=== PATIENT | female | born 1960 | race Caucasian/White ===

== ENCOUNTER 2021-06-19 19:08 | Emergency (ER) | payer SELFPAY ==
--- NOTE | ~2021-06-19 | XR_ITS ---
EXAMINATION: XR toe 1st LT min 2V DATE: 06/19/2021 19:58 INDICATION: Deep laceration to the left great toe TECHNIQUE: Dorsal plantar, lateral and oblique views of the left first were obtained. COMPARISON: None FINDINGS: Nondisplaced slightly obliqued transverse fracture across the proximal metaphysis of the left first d istal phalanx. Alignment remains near-anatomic. No other fractures identified. Joint spaces are ailyn l. Bandaging material about the great toe. IMPRESSION: Nondisplaced extra-articular fracture across the base of the left first proximal phalanx. Reviewed, dictated and finalized at location A. IMPRESSION: Nondisplaced extra-articular fracture across the base of the left first proxima l phalanx.
[2021-06-19 19:14] VITALS: BP 173/94; PULSE 86; RESP 20; TEMP 36.6; O2SAT 100
--- NOTE | 2021-06-19 19:32 | ED.WOUNDLAC ---
HPI - Wound/Laceration General Chief Complaint: Wound/Laceration Stated Complaint: Laceration to Left Toe Time Seen by Provider: 06/19/21 19:33 Source: patient Mode of arrival: ambulatory Limitations: no limitations History of Present Illness HPI narrative: Female presents to urgent care with her with complaint of pain and laceration to left great toe. Patient had just sat down her backpack type purse on the ground took a step forward and tripped over it. This caused her toenail to bend backwards. Range of motion is decreased due to pain. Distal neurovascular intact. All systems reviewed and negative except as noted above. Related Data Allergies Allergy/AdvReac Type Severity Reaction Status Date / Time Sulfa (Sulfonamide Allergy Severe CHILLS Verified 06/19/21 19:15 Antibiotics) amlodipine Allergy Mild Face Verified 06/19/21 19:15 swelling diltiazem Allergy Mild Unknown Verified 06/19/21 19:15 glipizide Allergy Mild Unknown Verified 06/19/21 19:15 Review of Systems Review of Systems: CONSTITUTIONAL: Denies fever, chills, or sweats. EYES: Denies visual changes, redness, or discharge. ENT: Denies rhinorrhea, congestion, sore throat, or otalgia. CARDIOVASCULAR: Denies chest pain, palpitations, or edema. RESPIRATORY: Denies cough or dyspnea. GASTROINTESTINAL: Denies abdominal pain, nausea, vomiting, or diarrhea. GENITOURINARY: Denies dysuria or hematuria. SKIN: Denies rash or itching. Bleeding laceration to left great toe. MUSCULOSKELETAL: Denies back pain, joint pain, or myalgia. NEUROLOGIC: Denies headache, numbness, or weakness. PSYCHIATRIC: Denies anxiety or depression. All other systems reviewed are negative, except as documented in HPI. [facility] Past Medical History Medical History (Updated 06/19/21 @ 20:46 by Lora Machado NP) BMI 35.0-35.9,adult HTN (hypertension) Type 2 diabetes mellitus Surgical History Surgical History History of carpal tunnel surgery of left wrist History of tubal ligation 23 years old Hx of colonoscopy Social History Social History Smoking status: Never smoker Tobacco type: cigarettes Smoking end date: 02/07/90 Comments At time of signature, agree with nursing past medical, surgical, social and family history. There is no relevant family history pertinent to the presenting complaint. Exam Narrative: GENERAL: This is a well-nourished, well-developed patient, in no apparent distress. HEAD: normocephalic, atraumatic. EYES: PERRL. Sclera clear/white. Vision is grossly intact. EARS: External ears normal, auditory canals clear and without drainage, TMs normal without perforation. Hearing grossly intact. NOSE: External nose normal with no obvious nasal discharge, nares without redness, no rhinorrhea. THROAT: Mucous membranes moist, posterior pharynx clear. NECK: Neck supple, non-tender without lymphadenopathy, masses or thyromegaly. CARDIOVASCULAR: Regular rate and rhythm without murmurs, gallops, or rubs. RESPIRATORY: Clear to auscultation. Breath sounds equal bilaterally. No wheezes, rales, or rhonchi. GASTROINTESTINAL: Abdomen soft, non-tender, nondistended. Bowel sounds are active. No hepato-splenomegaly, or palpable masses. No guarding. SKIN: warm, Dry, intact with no suspicious lesions or rash, good texture and turgor. There is a laceration to the left great toe, approximately 2 cm, with fracture noted by radiologist. This is an open fracture. It is actively bleeding. Laceration is at the base of the toenail, toenail is intact. NEURO: awake, alert, and oriented to person, place and time. There were no obvious focal neurologic abnormalities. EXTREMITIES: No joint tenderness, effusion, or edema noted. No calf tenderness. Negative Homans sign bilaterally. BACK: Nontender without deformity. No CVA tenderness. Extrem: Ankle/foot/toe images: 1. 2
[2021-06-19] MEDS: TETANUS,DIPHTHERIA,AC PERTUSSIS ADULT (0.5 ML) BOOSTRIX IM (20:43)
== END 2021-06-19 21:17 | disposition home or self-care (01) ==
PROVIDERS: Emergency Provider Nurse Practitioner Family
DX: S92.425B Nondisplaced fracture of distal phalanx of left great toe, initial encounter for open fracture (principal); W22.8XXA Striking against or struck by other objects, initial encounter; Z23 Encounter for immunization; I10 Essential (primary) hypertension; E11.9 Type 2 diabetes mellitus without complications
CPT/HCPCS: 12001; 29515; 73660; 90471; 90715; 99214; G0463

== ENCOUNTER 2024-08-19 01:16 | Day surgery (SDC) | payer BC, SELFPAY ==
[2024-08-08 08:39] VITALS: BMI 31.7
--- OUTSIDE RECORDS SUMMARY | 2024-08-19 01:18 | XMS_ITS | Continuity of Care Document ---
Author Organization [facility] [place] [address] [address] [place] [id number] Phone Care Team Providers Care Customer Experience Consultant Name Role Phone Coral OD, Delfina Unavailable Unavailable Allergies, Adverse Reactions, Alerts Substance Reaction Status Criticality No Known Allergies Active No Inform ation Medications Medication Instructions Dosage Effective Dates (start - stop) Status Comments losartan 100 mg tablet take 1 tablet by oral route every day 100 MG - Active atenolol 100 mg-chlorthalidone 25 mg tablet take 1 tablet by oral route every day 1.00 tablet - Active Trulicity 3 mg/0.5 mL subcutaneous pen injector inject (3MG) by subcutaneous route every week 3 MG - Active Procedures Procedure Date No Charge Refraction Fundus Photography W/ Report No Charge [facility] Office/outpatient Visit, Est Office/outpatient Visit, Est Fundus Photography W/ Report Refraction No Charge Refraction Fundus Photography W/ Report Eye Exam, New Patient Eye Exam, New Patient Advance Directives Directive Yes / No Effective Date File Name Other Directive No N/A N/A WARNING:The information contained in this section is historical and is provided for information only and does not constitute a legal document or any assurance that the information is still accurate. Please verify the information with the barone of the legal document before using it for clinical purposes. Encounters Encounter Description Practice Location Reason(s) For Visit Diagnoses Date Provider Providers Copied on Encounter Office/outpa [place]ient Visit, [facility] [place] [address] [place] [address] [address], [place], [place], [id number], [phone] SEC Grant CAMPBELL Professional diabetic eye exam (chief complaint) Age-related nuclear cataract, bilateralType 2 diabetes mellitus without complicationsL attice degeneration, rightPuckering of macula, right eyeDry eye syndrome of bilateral lacrimal glands Apr-0 5 Coral OD Delfina. [address] [place] [address] [address], [address], [place], [place], [id number], [place]. tel:[phone] Referring Provider: Mark Barrett, [address], [place], [address] . tel:[phone] Office/outpa [place]ient Visit, [facility] [place], [address] [place] [address] [address], [place], [place], [id number], [place] [phone] SEC Grant CAMPBELL Professional 1 month followup (chief complaint) Type 2 diabetes mellitus with other diabetic ophthalmic complicationAg e-related nuclear cataract, bilateralPucke ring of macula, right eyeVitreous hemorrhage of right eye 3 Eduardo Flores. [address], [address], [place], [place], [address], [place]. tel:[phone] Referring Provider: Mark Barrett, [address], [place], [address] . tel:[phone] [facility], [address] [place] [address] [address], [place], [place], [id number], [place] tel:[phone] SEC Grant CAMPBELL Professional diabetic eye exam (chief complaint) Vitreous hemorrhage of right eyeAge-related nuclear cataract, bilateralType 2 diabetes mellitus without complicationsP uckering of macula, right eye Dec- 2 Eduardo Flores. [address], [place], [place], [address], [place]. tel:[phone] Referring Provider: Mark Barrett, [address] [facility] [address], [place], [address] . tel:[phone] [facility], [address], [place], [place], [id number], [place] tel:[phone] SEC Grant CAMPBELL Professional No Information 0 Rossi Chavez. [address] [facility], [address], [place], [place], [address], [place]. tel:[phone] Family History Family Member Type Diagnosis Age At Onset Problem Family history of Diabetes m hilaria Payers Payer name Insurance type Covered libertarian ID Authorronny avendano(s) Krista [facility] [id number] Social History Type Description Quantity Date Captured Comments Alcohol Use Details No Caffeine Use Details No Tobacco Use Status Ex-cigarette smoker 025 Smoking Status Former smoker Smoking Tobacco Use Details Cigarette: Age Stopped: 34 Cigarette: No Details Available Sex Female Chief Complaint And Reason For Visit From encounter dated '07/08/2024 08:00'. diabetic eye exam (chief complaint). Description: The 64 year old patient presents for evaluation of diabetic eye exam in the right eye and left eye. Pt is followed for ERM OD. Pt had NIDDM II followed by PCP. Pt's last HA1C was 9.0. Pt states she feels her vision is more blurry when she istired. Pt states she the other day her OD was dry. Pt has residual floater in OD but not worse. Reason For Referral Reason For Referral No Information Plan Of Treatment Date Type Action Status Goal Tobacco cessation counseling completed Goal Tobacco cessation counseling completed Patient Education The Eye: Anatomy Sketch completed Patient Education Learning About Vitreous Hemorrhage completed History Of Present Illness Encounter Date Complaint History Of Prese nt Illness diabetic eye exam The 64 year ol d patient presents for evaluation of diabetic eye exam in the right eye and left eye. Pt is followed for ERM OD. Pt had NIDDM II followed by PCP. Pt's last HA1C was 9.0. Pt states she feels her vision is more blurry when she is tired. Pt states she the other day her OD was dry. Pt has residual floater in OD but not worse. 1 month followup The 61 year old patient presents for evaluation of 1 month followup in the right eye and left eye. Pt. here for dilated exam following PVD OD w/ Heme. Pt. is NIDDM II followed by her PCP. Pt. still notices floater in OD but it is less prominent then last month. Pt. states no flashing lights. diabetic eye exam The 61 year ol d patient presents for a complete Type II diabetic exam ou. BS last week was 171 and last A1C was 8.2 and PCP treats DM. Patient c/o blurry vision OD for about the last 3 weeks. Functional Status Date Functional Assessmen t No Information Instructions Date Instruction Additional Infor sneha Impression/Plan Impression/Plan Impression/Plan Assessments Type Assessment Date assessment Age-related nuclear cataract, bi lateral assessment Type 2 diabetes mellitus without complications assessment Lattice degeneration, right assessment Puckering of macula, right eye A assessment Dry eye syndrome of bilateral la crimal glands Patient Care Teams Name Effective Dates (start - stop) Status Members No Information
[2024-08-19 06:22] VITALS: BP 141/92; PULSE 73; RESP 17; TEMP 36.1; O2SAT 100; BMI 30.7
[2024-08-19] MEDS: LACTATED RINGERS 1,000 ML 150 ML IV CONT (06:34)
[2024-08-19 06:39] LABS: Glucose Point of Care 201 mg/dl (65-105)
--- NOTE | 2024-08-19 06:46 | P.PNAN_ITS ---
Anes - Initial Pre Proc Eval Procedure: Operation Date: 08/19/24 07:30 Proposed Procedures p Esophagogastroduodenoscopy&Screen Colon - Tiago Galeas MD Date/Time: 08/19/24 06:46 Surgeon: Tiago Galeas MD Pre Op Diagnosis: Screening,GERD,Dysphagia Patient Data Age: 64 Gender: F Height: 1.63 m Weight: 81.2 kg Last Vital Signs Temp 36.1 C L 08/19/24 06:22 Pulse 73 08/19/24 06:22 Resp 17 08/19/24 06:22 BP 141/92 H 08/19/24 06:22 Pulse Ox 100 08/19/24 06:22 O2 Del Method Room Air 08/19/24 06:22 Allergies Allergy/AdvReac Type Severity Reaction Status Date / Time Sulfa (Sulfonamide Allergy Severe CHILLS Verified 08/19/24 06:19 Antibiotics) amlodipine Allergy Mild Face Verified 08/19/24 06:19 swelling diltiazem Allergy Mild Unknown Verified 08/19/24 06:19 glipizide Allergy Mild Unknown Verified 08/19/24 06:19 Home Medications ?Medication ?Instructions ?Recorded ?Confirmed ?Type losartan 100 mg tablet See Rx Instructions .Route 04/30/23 08/08/24 Rx .COMPLEX #90 tabs atenolol 100 mg-chlorthalidone 25 See Rx Instructions .Route 04/21/24 08/08/24 Rx mg tablet .COMPLEX #90 tabs dulaglutide 3 mg/0.5 mL See Rx Instructions .Route 06/16/24 08/08/24 Rx subcutaneous pen injector .COMPLEX #8 mL (Trulicity) omeprazole 40 mg capsule,delayed See Rx Instructions .Route 08/15/24 08/19/24 Rx release .COMPLEX #90 caps Laboratory Tests 08/19/24 06:36 POC Capillary Glucose 201 H mg/dl (65-105) Patient hx anesthesia problems: none Family hx anesthesia problems: none Results Review: All pre-operative results and documents have been reviewed as part of the pre- operative evaluation. [facility] Past Medical History Medical History BMI 35.0-35.9,adult HTN (hypertension) Type 2 diabetes mellitus Surgical History Surgical History History of carpal tunnel surgery of left wrist History of tubal ligation 23 years old Hx of colonoscopy Family History Family History Father Colon polyp Social History Social History Smoking status: Former smoker Tobacco type: cigarettes Alcohol intake: never Substance use: never Substance use type: does not use Lack of Transportation: No Lack of Food: Never True Current Housing: I Have Housing Concerned About Future Housing: No Difficulty Paying Gas/Electric Bills: No Difficulty Paying for Meds: YES Currently Unemployed: No Education: Bachelor's Degree Difficulty w/ Childcare or Family Care: No Living arrangements: with family Spiritual care concerns: No Anes - Eval Final PreProcedure Day of Procedure 08/19/24 06:46 Patient weight: obese Heart: regular rate and rhythm Lungs: clear to auscultation Airway: Mallampati scale class II Neurological: alert and oriented Last oral intake: >/= 8 hours ASA classification: III Emergent: no Anesthetic plan: proceed Anesthesia type and monitoring: general GIVS and standard monitoring Results Review: All pre-operative results and documents have been reviewed as part of the pre- operative evaluation. Informed Consent: The patient's anesthetic plan and its attendant risks and benefits were discussed with the patient/family/POA. Questions were solicited and answers provided to the satisfaction of the patient/family/POA.
--- NOTE | 2024-08-19 07:08 | PM.HPGS ---
History of Present Illness History of Present Illness Consent: Risks, benefits, and alternatives have been discussed and questions answered. Patient agrees to proceed with procedure. Chief complaint: Screening,GERD,Dysphagia Narrative: Lizeth Estevez is a 64 year old female with gerd on omeprazole but better since changed her eating habits after using trulicity, last colonoscopy about 20 years ago Review of Systems Review of Systems: All systems reviewed & are unremarkable except as noted in HPI and below PMFSH Past Medical History Medical History BMI 35.0-35.9,adult HTN (hypertension) Type 2 diabetes mellitus Surgical History Surgical History History of carpal tunnel surgery of left wrist History of tubal ligation 23 years old Hx of colonoscopy Family History Family History Father Colon polyp Social History Social History Smoking status: Former smoker Tobacco type: cigarettes Alcohol intake: never Substance use: never Substance use type: does not use Lack of Transportation: No Lack of Food: Never True Current Housing: I Have Housing Concerned About Future Housing: No Difficulty Paying Gas/Electric Bills: No Difficulty Paying for Meds: YES Currently Unemployed: No Education: Bachelor's Degree Difficulty w/ Childcare or Family Care: No Living arrangements: with family Spiritual care concerns: No Meds Home Medications and Allergies Home Medications ?Medication ?Instructions ?Recorded ?Confirmed ?Type losartan 100 mg tablet See Rx Instructions .Route 04/30/23 08/08/24 Rx .COMPLEX #90 tabs atenolol 100 mg-chlorthalidone 25 See Rx Instructions .Route 04/21/24 08/08/24 Rx mg tablet .COMPLEX #90 tabs dulaglutide 3 mg/0.5 mL See Rx Instructions .Route 06/16/24 08/08/24 Rx subcutaneous pen injector .COMPLEX #8 mL (Trulicity) omeprazole 40 mg capsule,delayed See Rx Instructions .Route 08/15/24 08/19/24 Rx release .COMPLEX #90 caps Allergies Allergy/AdvReac Type Severity Reaction Status Date / Time Sulfa (Sulfonamide Allergy Severe CHILLS Verified 08/19/24 06:19 Antibiotics) amlodipine Allergy Mild Face Verified 08/19/24 06:19 swelling diltiazem Allergy Mild Unknown Verified 08/19/24 06:19 glipizide Allergy Mild Unknown Verified 08/19/24 06:19 Vital Signs Vital Signs - 24 hr 08/19/24 06:22 Temperature 97 F L Pulse Rate 73 Respiratory Rate 17 Blood Pressure 141/92 H Pulse Oximetry 100 Oxygen Delivery Room Air Exam Const: General: comfortable and no acute distress HENMT: Face/Nose/Sinus: Normal nares present Eyes: General: appearance normal, both eyes and all related structures Neck: Neck: no JVD Resp: Auscultation: clear to auscultation bilaterally Cardio: Rate: regular rate Rhythm: regular rhythm GI: Inspection: non-distended GI Palp: Yes Soft to palpation Skin: General skin exam: normal color Neuro: General: gait normal Speech: normal speech Extrem: General: normal to inspection Psych: Mental Status: mental status grossly normal Assessment and Plan Assessment and plan (1) GERD (gastroesophageal reflux disease): Qualifiers: Esophagitis presence: esophagitis presence not specified Qualified Code(s): K21.9 - Gastro-esophageal reflux disease without esophagitis Code(s): K21.9 - Gastro-esophageal reflux disease without esophagitis Status: Acute Assessment and Plan: egd with bx on ppi (2) Colon cancer screening: Code(s): Z12.11 - Encounter for screening for malignant neoplasm of colon Status: Acute Assessment and Plan: colonoscopy
--- NOTE | 2024-08-19 07:46 | SUR.OPER ---
EGD [id number]. Colonoscopy start time 744.
[2024-08-19 07:55] VITALS: BP 85/51; PULSE 71; RESP 13; O2SAT 97
[2024-08-19 08:05] VITALS: BP 83/49; PULSE 75; RESP 17; O2SAT 98
[2024-08-19 08:15] VITALS: BP 108/56; PULSE 75; RESP 18; O2SAT 98
== END 2024-08-19 08:28 | disposition home or self-care (01) ==
PROVIDERS: PCP Nurse Practitioner Family; Referring Provider Nurse Practitioner Family; Visit Provider Internal Medicine Gastroenterology
PROC: 0DJ08ZZ Inspection of Upper Intestinal Tract, Via Natural or Artificial Opening Endoscopic (ICD-10-PCS; CPT 45378; principal; 2024-08-19 07:30)
DX: Z12.11 Encounter for screening for malignant neoplasm of colon (principal); K64.8 Other hemorrhoids; K22.2 Esophageal obstruction; K29.70 Gastritis, unspecified, without bleeding; K31.7 Polyp of stomach and duodenum; K21.9 Gastro-esophageal reflux disease without esophagitis; I10 Essential (primary) hypertension; E11.9 Type 2 diabetes mellitus without complications; E66.9 Obesity, unspecified; Z68.30 Body mass index [BMI] 30.0-30.9, adult; Z79.85 Long-term (current) use of injectable non-insulin antidiabetic drugs; Z98.890 Other specified postprocedural states; Z98.51 Tubal ligation status; Z87.891 Personal history of nicotine dependence; Z83.719 Family history of colon polyps, unspecified
CPT/HCPCS: 43239; 43249; 45378; 82948; 88305; C1726; J2003; J2704; J7120

== ENCOUNTER 2024-10-22 11:05 | Outpatient (CLI) | payer BC, SELFPAY ==
--- NOTE | ~2024-10-22 | XR_ITS ---
Thoracic spine: Clinical Indication: Pain AP and lateral views were performed. Probable mild compression deformities of T9, T10, T11, T12.. There is normal alignment of the verteb marilu. There is multilevel moderate degenerative disc narrowing throughout the lower thoracic spine. Pa ravertebral soft tissues appear normal. Impression: Probable mild compression of T9, T10, T11, T12, most likely chronic. Moderate degenerative disc narrowing at the lower thoracic spine. Reviewed, dictated and finalized at location . Impression: Probable mild compression of T9, T10, T11, T12, most likely chronic. Moderate degenerative disc narrowing at the lower thoracic spine.
--- NOTE | 2024-10-22 11:28 | ECG_ITS ---
Test Date: 2024-10-22 11:35:20 Measurements Intervals [place] Rate: 73 P: 56 UT: 188 QRS: 85 QRSD: 148 T: 34 QT: 418 QTc: 461 Interpretive Statements SINUS RHYTHM RIGHT BUNDLE BRANCH BLOCK [120+ ms QRS DURATION, UPRIGHT V1, 40+ ms S IN I/aVL/V4/V5/V6] No previous ECG available for comparison Electronically Signed On 10-23-2024 14:37:45 CDT by José Miguel Roque M.D.
[2024-10-22 11:31] LABS: Hematocrit 42.5 % (35.0-49.0); Hemoglobin 14.1 g/dL (12.0-15.0); Immature Granulocyte Percent A 0.4 % (0.0-0.0); Lymphocytes Absolute Auto 2.24 K/mm3 (1.10-4.50); Mean Corpuscular HGB Conc 33.2 g/dL (32-36); Mean Corpuscular Hemoglobin 30.4 pg (27.0-31.0); Mean Corpuscular Volume 91.6 fL (78.0-102.0); Nucleated Red Blood Cells Absolute Auto 0.00 K/mm3 (0.00-0.00); Nucleated Red Blood Cells Perc 0.0 % (0-0.0); Platelet Count Result 312 K/mm3 (150-420); Red Blood Count 4.64 M/mm3 (4.20-5.40); White Blood Count 8.2 K/mm3 (4.8-10.8)
[2024-10-22 11:45] LABS: Hemoglobin A1C 9.0 % (<5.7)
[2024-10-22 11:56] LABS: Alanine Aminotransferase 27 U/L (6-35); Albumin Level 3.9 g/dL (3.5-5.1); Alkaline Phosphatase 90 U/L (38-126); Anion Gap 4 mmol/L (4-12); Aspartate Amino Transferase 26 U/L (14-36); Bilirubin,Total 0.8 mg/dL (0.2-1.3); Blood Urea Nitrogen 16 mg/dL (7-17); Calcium 9.1 mg/dL (8.4-10.2); Carbon Dioxide 32 mmol/L (22-30); Chloride 101 mmol/L (98-107); Cholesterol 199 mg/dL (0-200); Estimated Glomerular Filt Rate 60; Glucose 301 mg/dL (65-110); HDL Direct 52 mg/dL; Osmolality Calculated 296 mOsm/kg (285-295); Potassium 3.9 mmol/L (3.4-5.0); Sodium 137 mmol/L (137-145); Total Protein 7.0 g/dL (6.3-8.2); Triglycerides 184 mg/dL (<150)
== END 2024-10-22 11:06 | disposition home or self-care (01) ==
PROVIDERS: PCP Nurse Practitioner Family; Visit Provider Nurse Practitioner Family
DX: I10 Essential (primary) hypertension (principal); E11.9 Type 2 diabetes mellitus without complications; Z79.899 Other long term (current) drug therapy; Z13.6 Encounter for screening for cardiovascular disorders; M54.9 Dorsalgia, unspecified; I45.10 Unspecified right bundle-branch block; M48.04 Spinal stenosis, thoracic region
CPT/HCPCS: 36415; 72072; 80053; 80061; 82306; 83036; 85025; 93005